=== PATIENT | female | born 1985 | race African-American/Black ===

== ENCOUNTER 2022-05-12 16:16 | Observation (INO) | payer MEDICAID ==
[~2022-05-12] VITALS: Ht 162.6 cm; Wt 87.1 kg
== END 2022-05-12 17:40 | disposition home or self-care (01) ==
LOC: 8 EST LDRP 16:16
PROVIDERS: ADMIT Specialist; ATTEND Specialist
DX: O46.92 Antepartum hemorrhage, unspecified, second trimester (principal); Z3A.21 21 weeks gestation of pregnancy
CPT/HCPCS: 59025; 99281; G0378

== ENCOUNTER 2022-07-31 12:25 | Observation (INO) | payer MEDICAID ==
[~2022-07-31] VITALS: Ht 162.6 cm; Wt 91.6 kg
[2022-07-31] MEDS ORDERED: BETAMETHASONE ACET/BETAMET 30 MG/5 ML VIAL IM NR (15:00)
[2022-07-31] MEDS ORDERED: PNV1TABL76 PO (15:21)
== END 2022-07-31 15:30 | disposition home or self-care (01) ==
LOC: 8 EST LDRP 12:25
PROVIDERS: ADMIT Obstetrics & Gynecology; ATTEND Obstetrics & Gynecology
DX: O26.853 Spotting complicating pregnancy, third trimester (principal); Z3A.32 32 weeks gestation of pregnancy
CPT/HCPCS: 59025; 76805; 76818; 96372; G0378; J0702

== ENCOUNTER 2022-08-01 15:07 | Observation (INO) | payer MEDICAID ==
[~2022-08-01] VITALS: Ht 162.6 cm; Wt 202.0 kg
[~2022-08-01 15:07] MED LIST: PNV1TABL76 PO
[2022-08-01] MEDS ORDERED: BETAMETHASONE ACET/BETAMET 30 MG/5 ML VIAL IM NR ×2 (15:30→15:53)
== END 2022-08-01 15:45 | disposition home or self-care (01) ==
LOC: 8 EST LDRP 15:07
PROVIDERS: ADMIT Obstetrics & Gynecology; ATTEND Obstetrics & Gynecology
DX: O26.853 Spotting complicating pregnancy, third trimester (principal); Z3A.32 32 weeks gestation of pregnancy
CPT/HCPCS: 59025; 96372; 99281; G0378

== ENCOUNTER 2022-09-02 07:15 | Inpatient (IN) | payer MEDICAID ==
[~2022-09-02] VITALS: Ht 162.6 cm; Wt 95.7 kg
[2022-09-02] MEDS ORDERED: MISOPROSTOL 100MCG TABLET RC PRN (08:30)
[2022-09-02] MEDS ORDERED: NALOXONE HCL 0.4 MG/ML 1ML VIAL IM PRN (08:30)
[2022-09-02] MEDS ORDERED: METHYLERGONOVINE MALEATE 0.2 MG/ML IM PRN (08:30)
[2022-09-02 09:53] LABS: CLARITY URINE CLOUDY (CLEAR); COLOR URINE YELLOW (YELLOW); KETONES URINE NEGATIVE (NEGATIVE); LEUKOCYTE ESTERASE URINE 3+ (NEGATIVE); NITRITE URINE NEGATIVE (NEGATIVE); OCCULT BLOOD URINE TRACE (NEGATIVE); PROTEIN URINE 1+ (NEGATIVE); SPECIFIC GRAVITY URINE 1.019 (1.005-1.030)
[2022-09-02 09:57] LABS: BASOPHILS % 0.4 % (0.0-2.0); EOSINOPHILS % 1.1 % (0.0-5.0); HEMATOCRIT. 33.5 % (36.0-48.0); HEMOGLOBIN. 11.6 g/dL (12.0-16.0); LYMPHOCYTES % 17.4 % (20.0-50.0); MEAN CORPUSCULAR HEMOGLOBIN 30.8 pg (28.0-32.0); MEAN CORPUSCULAR VOLUME 88.8 fL (81.0-99.0); MEAN PLATELET VOLUME 7.8 fl (7.4-10.4); MONOCYTES % 8.4 % (2.0-8.0); NEUTROPHILS % 72.7 % (40.0-76.0); PLATELET 246 x1000/uL (130-400); RED BLOOD CELL COUNT 3.77 mill/uL (4.2-5.4); RED CELL DISTRIBUTION WIDTH 14.6 % (11.6-14.6)
[2022-09-02 10:18] LABS: *AMPHETAMINES SCREEN URINE NEGATIVE (NEGATIVE); *BARBITURATES SCREEN URINE NEGATIVE (NEGATIVE); *BENZODIAZEPINES SCREEN URINE NEGATIVE (NEGATIVE); *COCAINE SCREEN URINE NEGATIVE (NEGATIVE); CANNABINOID URINE SCREEN NEGATIVE (NEGATIVE); METHADONE URINE SCREEN NEGATIVE (NEGATIVE); OPIATES URINE SCREEN NEGATIVE (NEGATIVE); PHENCYCLIDINE URINE SCREEN NEGATIVE (NEGATIVE)
[2022-09-02] MEDS: LACTATED RINGERS 1,000 ML IV SCH (10:41)
[2022-09-02] MEDS ORDERED: NALOXONE HCL 0.4 MG/ML 1ML VIAL IV PRN (11:15)
[2022-09-02] MEDS ORDERED: MORPHINE SULFATE 10 MG/ML CPJ IV PRN (11:15)
[2022-09-02] MEDS ORDERED: FENTANYL CITRATE/PF 50MCG/ML 2ML VIAL IV PRN (11:15)
[2022-09-02] MEDS ORDERED: MORPHINE SULFATE/PF 1MG/ML 10ML AMP ONE (11:22)
[2022-09-02] MEDS ORDERED: CEFAZOLIN SODIUM 1000MG/VIAL ONE ×2 (11:22→11:29)
[2022-09-02] MEDS ORDERED: DEXAMETHASONE 4MG/ML 1ML VIAL ONE (11:29)
[2022-09-02] MEDS ORDERED: SODIUM CHLORIDE 0.9% 10ML VIAL ONE (11:29)
[2022-09-02] MEDS ORDERED: METOCLOPRAMIDE HCL 10MG/2ML VIAL ONE (11:29)
[2022-09-02] MEDS ORDERED: ONDANSETRON HCL 4MG/2ML INJ ONE (11:29)
[2022-09-02] MEDS ORDERED: ONDANSETRON HCL 4MG/2ML INJ IV PRN (11:45)
[2022-09-02] MEDS ORDERED: HEMORRHOIDAL SUPP PR PRN (11:45)
[2022-09-02] MEDS ORDERED: DIPHENHYDRAMINE 25MG CAPSULE PO PRN (11:45)
[2022-09-02] MEDS ORDERED: BISACODYL 10MG SUPP PR PRN (11:45)
[2022-09-02] MEDS ORDERED: ACETAMINOPHEN WITH CODEINE 300/30MG TABLET PO PRN (11:45)
[2022-09-02] MEDS ORDERED: IBUPROFEN 400MG TABLET PO PRN (11:45)
[2022-09-02] MEDS ORDERED: RHO(D) IMMUNE GLOBULIN 300 MCG/SYR IM PRN (11:45)
[2022-09-02] MEDS ORDERED: OXYTOCIN 30 UNITS/500ML NS PMX 500 ML IV SCH (11:45)
[2022-09-02] MEDS ORDERED: LANOLIN OINT 7GM TUBE TOP PRN (11:45)
[2022-09-02] MEDS ORDERED: EPHEDRINE SULFATE 50MG/ML VIAL ONE ×3 (12:06→12:24)
[2022-09-02 13:23] LABS: HEPATITIS B SURFACE ANTIGEN NEGATIVE
[2022-09-02] MEDS ORDERED: LEVOTHYROXINE SODIUM 100MCG TABLET PO SCH (15:00)
[2022-09-02] MEDS: OXYTOCIN 30 UNITS/500ML NS PMX 500 ML IV SCH ×2 (15:17→19:29)
[2022-09-02 15:19] LABS: PARTIAL THROMBOPLASTIN TIME 30.5 sec (23.4-31.0); PROTHROMBIN TIME 10.3 sec (9.6-11.0)
[2022-09-02 15:35] VITALS: BP 103/50
[2022-09-02] MEDS: KETOROLAC 30MG/ML VIAL IV SCH ×2 (16:00→22:06)
[2022-09-02 16:05] VITALS: BP 100/52
[2022-09-02 17:00] VITALS: BP 105/65
[2022-09-02 20:00] VITALS: BP 93/50
[2022-09-02 23:30] VITALS: BP 90/50
[2022-09-03] MEDS: LACTATED RINGERS 1,000 ML IV SCH ×2 (00:26→08:19)
[2022-09-03] MEDS ORDERED: KETOROLAC 30MG/ML VIAL IV NR (04:15)
[2022-09-03 04:30] VITALS: BP 93/56
[2022-09-03 06:44] LABS: BASOPHILS % 0.2 % (0.0-2.0); EOSINOPHILS % 0.4 % (0.0-5.0); HEMOGLOBIN. 9.5 g/dL (12.0-16.0); LYMPHOCYTES % 14.9 % (20.0-50.0); MEAN CORPUSCULAR HEMOGLOBIN 29.4 pg (28.0-32.0); MEAN CORPUSCULAR VOLUME 89.9 fL (81.0-99.0); MEAN PLATELET VOLUME 7.7 fl (7.4-10.4); MONOCYTES % 6.8 % (2.0-8.0); NEUTROPHILS % 77.7 % (40.0-76.0); PLATELET 231 x1000/uL (130-400); RED BLOOD CELL COUNT 3.23 mill/uL (4.2-5.4); RED CELL DISTRIBUTION WIDTH 14.5 % (11.6-14.6)
[2022-09-03 08:00] VITALS: BP 97/66
[2022-09-03] MEDS: PRENATAL VIT/FE FUMARATE/FA TABLET PO SCH (08:18)
[2022-09-03] MEDS: MAGNESIUM/ALUMINUM HYDROXIDE/SIMETHICONE 30ML UDC PO SCH ×3 (08:18→20:44)
[2022-09-03] MEDS: FERROUS SULFATE 325MG TABLET PO SCH ×2 (08:18→15:18)
[2022-09-03] MEDS: LEVOTHYROXINE SODIUM 100MCG TABLET PO SCH (08:19)
[2022-09-03] MEDS: SIMETHICONE 80MG TABLET CHEW PO SCH ×3 (08:19→20:44)
[2022-09-03] MEDS: IBUPROFEN 800MG TABLET PO PRN (15:18)
[2022-09-03 16:00] VITALS: BP 101/65
[2022-09-03 20:00] VITALS: BP 104/54
[2022-09-03] MEDS: DOCUSATE SODIUM 100MG CAPSULE PO SCH (20:44)
[2022-09-04 04:03] VITALS: BP 118/76
[2022-09-04] MEDS: IBUPROFEN 800MG TABLET PO PRN ×3 (05:03→21:19)
[2022-09-04 07:30] VITALS: BP 95/63
[2022-09-04] MEDS: MAGNESIUM/ALUMINUM HYDROXIDE/SIMETHICONE 30ML UDC PO SCH ×4 (07:30→21:19)
[2022-09-04] MEDS: SIMETHICONE 80MG TABLET CHEW PO SCH ×4 (07:44→21:19)
[2022-09-04] MEDS: LEVOTHYROXINE SODIUM 100MCG TABLET PO SCH (07:59)
[2022-09-04] MEDS: PRENATAL VIT/FE FUMARATE/FA TABLET PO SCH (07:59)
[2022-09-04] MEDS: FERROUS SULFATE 325MG TABLET PO SCH ×3 (07:59→17:10)
[2022-09-04] MEDS ORDERED: METRONIDAZOLE 500MG TABLET PO NR (09:00)
[2022-09-04 11:21] LABS: CLARITY URINE CLOUDY (CLEAR); COLOR URINE YELLOW (YELLOW); KETONES URINE NEGATIVE (NEGATIVE); LEUKOCYTE ESTERASE URINE 3+ (NEGATIVE); NITRITE URINE NEGATIVE (NEGATIVE); OCCULT BLOOD URINE 3+ (NEGATIVE); PROTEIN URINE NEGATIVE (NEGATIVE); SPECIFIC GRAVITY URINE 1.007 (1.005-1.030); UROBILINOGEN URINE 0.2 E.U./dL (0.2-1.0)
[2022-09-04 15:37] VITALS: BP 100/66
[2022-09-04 16:20] LABS: BASOPHILS % 0.3 % (0.0-2.0); EOSINOPHILS % 1.9 % (0.0-5.0); HEMATOCRIT. 28.3 % (36.0-48.0); HEMOGLOBIN. 9.2 g/dL (12.0-16.0); LYMPHOCYTES % 18.4 % (20.0-50.0); MEAN CORPUSCULAR HEMOGLOBIN 29.2 pg (28.0-32.0); MEAN CORPUSCULAR VOLUME 89.8 fL (81.0-99.0); MEAN PLATELET VOLUME 7.8 fl (7.4-10.4); MONOCYTES % 8.5 % (2.0-8.0); NEUTROPHILS % 70.9 % (40.0-76.0); PLATELET 243 x1000/uL (130-400); RED BLOOD CELL COUNT 3.15 mill/uL (4.2-5.4); RED CELL DISTRIBUTION WIDTH 14.8 % (11.6-14.6)
[2022-09-04 19:30] VITALS: BP 123/79
[2022-09-04] MEDS: DOCUSATE SODIUM 100MG CAPSULE PO SCH (21:20)
[2022-09-05 04:00] VITALS: BP 102/54
[2022-09-05] MEDS: MAGNESIUM/ALUMINUM HYDROXIDE/SIMETHICONE 30ML UDC PO SCH ×2 (07:30→12:30)
[2022-09-05 08:00] VITALS: BP 120/71
[2022-09-05] MEDS: SIMETHICONE 80MG TABLET CHEW PO SCH ×2 (08:00→12:35)
[2022-09-05] MEDS: LEVOTHYROXINE SODIUM 100MCG TABLET PO SCH (08:05)
[2022-09-05] MEDS: PRENATAL VIT/FE FUMARATE/FA TABLET PO SCH (08:05)
[2022-09-05] MEDS: FERROUS SULFATE 325MG TABLET PO SCH ×2 (08:05→12:41)
[2022-09-05] MEDS: IBUPROFEN 800MG TABLET PO PRN (12:41)
[2022-09-05] MEDS ORDERED: IBUP-2030 MT (13:21)
[2022-09-05] MEDS ORDERED: METR-167 MT (13:22)
== END 2022-09-05 15:00 | disposition home or self-care (01) | DRG 539 ==
LOC: OBSVTOIN 07:15 → 8 EST LDRP 07:15 → 8EST 15:32
PROVIDERS: ADMIT Obstetrics & Gynecology; ATTEND Obstetrics & Gynecology
PROC: 10D00Z1 Extraction of Products of Conception, Low, Open Approach (ICD-10-PCS; principal; 2022-09-05)
PROC: 0UB70ZZ Excision of Bilateral Fallopian Tubes, Open Approach (ICD-10-PCS; 2022-09-05)
DX: O44.03 Complete placenta previa NOS or without hemorrhage, third trimester (principal); O99.12 Other diseases of the blood and blood-forming organs and certain disorders involving the immune mechanism complicating childbirth; O34.211 Maternal care for low transverse scar from previous cesarean delivery; D72.829 Elevated white blood cell count, unspecified; Z20.822 Contact with and (suspected) exposure to COVID-19; O99.214 Obesity complicating childbirth; O99.02 Anemia complicating childbirth; Z37.0 Single live birth; Z3A.37 37 weeks gestation of pregnancy; Z30.2 Encounter for sterilization
CPT/HCPCS: 36415; 80305; 81003; 82947; 82962; 85025; 86592; 86703; 86762; 86850; 86900; 86920; 87340; 87426; 88302; 88307; J0690; J1100; J1885; J2274; J2405; J2765; J3490; J7120; J2590